=== PATIENT | male | born 1985 | race Caucasian/White ===

== ENCOUNTER 2020-02-02 14:28 | Emergency (ER) | payer OTHER ==
[~2020-02-02] VITALS: Ht 167.6 cm; Wt 84.4 kg
[2020-02-02 14:39] VITALS: Ht 167.6 cm; Wt 84.4 kg
[2020-02-02 16:32] VITALS: BP 142/79
== END 2020-02-02 16:32 | disposition home or self-care (01) ==
LOC: ED 14:28
DX: L60.0 Ingrowing nail (principal); L08.9 Local infection of the skin and subcutaneous tissue, unspecified
CPT/HCPCS: J2001